=== PATIENT | female | born 1945 ===

== ENCOUNTER 2023-04-03 09:20 | Outpatient (CLI) | payer MEDICARE, OTHER | END 2023-04-03 09:21 | disposition home or self-care (01) | LOC: CSHCT 09:20 | PROVIDERS: ATTEND Internal Medicine Critical Care Medicine | DX: R91.8 Other nonspecific abnormal finding of lung field (principal); N28.9 Disorder of kidney and ureter, unspecified; K76.9 Liver disease, unspecified | CPT/HCPCS: 71250 ==